=== PATIENT | male | born 1965 | race Caucasian/White ===

== ENCOUNTER 2018-10-24 14:50 | Observation (INO) ==
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
[2018-10-24] MEDS ORDERED: Aspirin 81 MG TAB.CHEW PO ONE (15:15)
[2018-10-24] MEDS ORDERED: Nitroglycerin 0.4 MG TAB.SUBL SL PRN ×2 (15:15→22:08)
[2018-10-24 15:30] LABS: Basophils # 0.1 K/mcL (0.0-0.2); Basophils % 0.9 %; Eosinophils # 0.3 K/mcL (0.0-0.6); Eosinophils % 3.8 %; Hematocrit 42.6 % (37.5-50.1); Hemoglobin 14.4 g/dL (12.9-16.9); Immature Granulocytes % 0.3 % (0-4); Lymphocytes # 2.6 K/mcL (0.6-4.6); Lymphocytes % 29.8 %; Mean Corpuscular HGB Conc 33.8 g/dL (31.6-35.5); Mean Corpuscular Hemoglobin 29.4 pg (28.0-33.3); Mean Corpuscular Volume 87.1 fL (83.0-100.0); Mean Platelet Volume 9.3 fL (9.4-12.4); Monocytes # 0.7 K/mcL (0.0-1.3); Monocytes % 7.9 %; Platelet Count 204 K/mcL (140-400); Red Blood Count 4.89 M/mcL (4.19-5.50); Red Cell Distribution Width 12.5 % (11.5-14.5); Segmented Neutrophils % 57.3 %; White Blood Count 8.8 K/mcL (4.3-11.1)
[2018-10-24 15:40] LABS: Prothrombin Time 11.1 Seconds (9.4-12.1)
[2018-10-24 15:43] LABS: BUN/Creatinine Ratio 19 (6-26); Blood Urea Nitrogen 14 mg/dL (6-20); Calcium 9.8 mg/dL (8.6-10.3); Carbon Dioxide 27 mEq/L (23-29); Chloride 102 mEq/L (98-107); Glucose 103 mg/dL (70-105); Osmolality,Calculated 287 (280-300); Potassium 4.4 mEq/L (3.5-5.1); Sodium 138 mEq/L (136-145); eGFR For African Americans > 60 (> 60); eGFR For Non-African Americans > 60 (> 60)
[2018-10-24 15:44] LABS: Troponin I 0.03 ng/mL (< 0.04)
--- NOTE | 2018-10-24 18:03 | Emergency Department Note ---
Disposition Clinical Impression: Chest pain Qualifiers: Chest pain type: unspecified Qualified Code(s): R07.9 - Chest pain, unspecified Disposition: Admitted As Inpatient Condition: Fair Reasons to Return/Additional Instructions: Referrals: NONE,PCP [Primary Care Provider] - Forms: ED Satisfaction Letter Time of Disposition: 18:44 General Adult HPI - General Chief complaint: ED Chest Pain Stated complaint: chest pain, HTN Time Seen by Provider: 10/24/18 14:59 Source: patient Mode of arrival: ambulatory Limitations: no limitations - History of Present Illness Pain Scale: 4 - Related Data Previous Rx's Medication Instructions Recorded Atorvastatin [Lipitor] 80 mg PO HS #30 tablet 08/30/16 Nitroglycerin 0.4 mg SL Q5MIN PRN #30 tab.subl 08/30/16 Allergies Allergy/AdvReac Type Severity Reaction Status Date / Time fluticasone [From Flonase] AdvReac BURNING Verified 09/10/17 10:43 Cardiovascular: Reports: chest pain. Denies: palpitations, dyspnea on exertion, edema, syncope Respiratory: Denies: cough, dyspnea, wheezes Gastrointestinal: Denies: abdominal pain, nausea, vomiting, diarrhea Past Medical History - Past Medical History Medical history: Reports: arthritis, coronary artery disease, hyperlipidemia, hypertension Surgical history: Reports: other Psychiatric history: Reports: no psych history - Social History Smoking Status: Former smoker Smokeless Tobacco Status: No Alcohol use: Reports: none Drug use: Reports: none Physical Exam - General Limitations: no limitations General appearance: alert Course - Reevaluation(s) Reevaluation #1: accepted sign out from Dr. Maximilian Amador and the plan is to followup with repeast troponin. The likelihood of him leaving AMA is high but he is willing to stay for the repeat troponin and if negstie will likely sign out AMA. If troponin is higher than I will discuss with elzbieta the need for admission again, and still endorse admission even if it is negstive as he is high risk for ACS and has a high heart score. troponin pending. Time: 18:02 Reevaluation #2: discussed with jonhy about risks of leaving again and he is more ammenable abo ut being admitted if we can give a courtesy call out to Dr. Ornelas about missing his appointment tomorrow, he has been waiting to go for it and does not want to miss it or be kicked out of the practice. I will give him a courtesy call and he will be admitted for chest pain rule out. Time: 18:43 - Consultations Consultation #1: gave Dr. kim a courtesy call and he is understanding of patinet admission need and there will not any reprecussions secondary to it Time: 18:43 Consultation #2: discussed cse with Dr. Boss and he accepts pstient to medicine service Time: 19:40 Vital Signs Temperature 98.4 F 10/24/18 14:56 Pulse Rate 83 10/24/18 14:56 Respiratory Rate 18 10/24/18 14:56 Blood Pressure 139/95 10/24/18 14:56 O2 Sat by Pulse Oximetry 97 10/24/18 14:56 Temperature 98.4 F 10/24/18 14:56 Pulse Rate 71 10/24/18 18:12 Respiratory Rate 14 10/24/18 18:12 Blood Pressure 149/100 10/24/18 18:12 O2 Sat by Pulse Oximetry 97 10/24/18 18:12 Oxygen Delivery Oxygen Delivery Room Air Medical Decision Making - Lab Data Result diagrams: 10/24/18 15:05 10/24/18 15:05 Lab Results 10/24/18 10/24/18 10/24/18 Range/Units 15:05 15:05 15:05 WBC 8.8 (4.3-11.1) K/mcL RBC 4.89 (4.19-5.50) M/mcL Hgb 14.4 (12.9-16.9) g/dL Hct 42.6 (37.5-50.1) % MCV 87.1 (83.0-100.0) fL MCH 29.4 (28.0-33.3) pg MCHC 33.8 (31.6-35.5) g/dL RDW 12.5 (11.5-14.5) % Plt Count 204 (140-400) K/mcL MPV 9.3 L (9.4-12.4) fL Immature Gran % 0.3 (0-4) % Seg Neutrophils % 57.3 % Lymphocytes % 29.8 % Monocytes % 7.9 % Eosinophils % 3.8 % Basophils % 0.9 % Neutrophils # 5.0 (1.6-8.9) K/mcL Lymphocytes # 2.6 (0.6-4.6) K/mcL Monocytes # 0.7 (0.0-1.3) K/mcL Eosinophils # 0.3 (0.0-0.6) K/mcL Basophils # 0.1 (0.0-0.2) K/mcL PT 11.1 (9.4-12.1) Seconds INR 1.0 APTT 30.0 (26.0-36.0) Seconds Sodium 138 (136-145) mEq/L Potassium 4.4 (3.5-5.1) mEq/L Chloride 102 (98-107) mEq/L Carbon Dioxide 27 (23-29) mEq/L BUN 14 (6-20) mg/dL Creatinine 0.75 (0.70-1.30) mg/dL Est GFR ( Amer) > 60 (> 60) Est GFR (Non-Af Amer) > 60 (> 60) BUN/Creatinine Ratio 19 (6-26) Glucose 103 (70-105) mg/dL Calculated Osmolality 287 (280-300) Calcium 9.8 (8.6-10.3) mg/dL Troponin I 0.03 (< 0.04) ng/mL 10/24/18 Range/Units 17:49 WBC (4.3-11.1) K/mcL RBC (4.19-5.50) M/mcL Hgb (12.9-16.9) g/dL Hct (37.5-50.1) % MCV (83.0-100.0) fL MCH (28.0-33.3) pg MCHC (31.6-35.5) g/dL RDW (11.5-14.5) % Plt Count (140-400) K/mcL MPV (9.4-12.4) fL Immature Gran % (0-4) % Seg Neutrophils % % Lymphocytes % % Monocytes % % Eosinophils % % Basophils % % Neutrophils # (1.6-8.9) K/mcL Lymphocytes # (0.6-4.6) K/mcL Monocytes # (0.0-1.3) K/mcL Eosinophils # (0.0-0.6) K/mcL Basophils # (0.0-0.2) K/mcL PT (9.4-12.1) Seconds INR APTT (26.0-36.0) Seconds Sodium (136-145) mEq/L Potassium (3.5-5.1) mEq/L Chloride (98-107) mEq/L Carbon Dioxide (23-29) mEq/L BUN (6-20) mg/dL Creatinine (0.70-1.30) mg/dL Est GFR ( Amer) (> 60) Est GFR (Non-Af Amer) (> 60) BUN/Creatinine Ratio (6-26) Glucose (70-105) mg/dL Calculated Osmolality (280-300) Calcium (8.6-10.3) mg/dL Troponin I < 0.03 (< 0.04) ng/mL Heart Score - Score History: Moderately Suspicious EKG: Non Specific repolarisation Disturbance Age: 45-65 Risk Factors: Equal/Greater than 3 risk factor or history of atherosclerotic disease Troponin: Less than normal limit HEART Score Total: 5
[2018-10-24] MEDS ORDERED: *HR* FentaNYL (PF) 100 MCG/2 ML VIAL IVP ONE (19:15)
--- NOTE | 2018-10-24 22:12 | Internal Med History&Physical ---
Date of Encounter: 10/24/18 Time of Encounter: 22:12 Internal Medicine - H&P: HPI Chief complaint: Chest pain History of present illness: Mr. Belcher is a 53 year old male with a past medical history of coronary artery disease status post stent to LAD, hypertension, hyperlipidemia who presented to the ED with complaints of chest pain. Patient reports that around 11 AM this morning he developed left-sided chest pain which occurred during sexual activity. Pain described as a heaviness, 10 out of 10 in intensity with associated nausea and left arm pain. Patient reports pain aggravated when lying down on his back and improves with sitting up. Patient does state that the pain is similar to his chest pain around the time he had a stent placed. Pain somewhat subsided but continue to persist throughout the rest of the day. He subsequently went for his rehabilitation session where his blood pressure was found to be elevated and referred to the ED for further evaluation. Shortly after arrival, patients chest pain completely resolved after receiving 2 nitrogl ycerin. Initial troponins were negative 2. EKG showed normal sinus rhythm. Patient had a stress test in 2018 prior to a back surgery which was negative for ischemia. Patient is not currently on a beta brynn due to extreme fatigue associated with it. Patient follows with a pharmacology teacher whom he recently saw last Sunday. Patient does not smoke. No alcohol or drug use. Patient received loading dose of aspirin in the ED. Past Med Surg Social Fam HX - Past Medical History Medical history: arthritis, coronary artery disease, hyperlipidemia, hypertension Psychiatric history: no psych history - Past Surgical History Surgical History: other Additional surgical history: heart stent, hemorrhoid sx, jaw wired shut - Social History Smoking Status: Former smoker Smokeless Tobacco Status: No Alcohol use: none Drug use: none - Family History Father Hx Family Cardiac Disorders: Yes Mother Hx Family Cardiac Disorders: Yes Internal Medicine - H&P: Meds Atorvastatin [Lipitor] 80 mg PO HS #30 tablet 08/30/16 [Rx] Nitroglycerin 0.4 mg SL Q5MIN PRN #30 tab.subl 08/30/16 [Rx] Aspirin Enteric Coated [Aspirin EC] 81 mg PO DAILY #30 tablet. 10/25/18 [Rx] Metoprolol [Lopressor] 12.5 mg PO BID #30 tablet 10/25/18 [Rx] Allergy/AdvReac Type Severity Reaction Status Date / Time fluticasone [From Flonase] AdvReac BURNING Verified 09/10/17 10:43 All Systems PM: A 10-system review of systems was performed and is negative for pertinent f indings except as documented above in the HPI. - Constitutional Constitutional: no chills, no fever(s), no night sweats - EENT Eyes: no change in vision, no discharge, no pain, no photophobia Ears: no ear discharge, no ear pain, no tinnitus Nose, mouth and throat: no dysphagia, no nasal discharge, no neck pain, no sore throat - Cardiovascular Cardiovascular ROS IM: no chest pain, no diaphoresis, no dyspnea, no lightheadedness, no palpitations, no syncope - Respiratory Respiratory: no cough, no dyspnea, no wheezing, no excessive phlegm production - Gastrointestinal Gastrointestinal: no abdominal pain, no diarrhea, no hematemesis, no hematochezia, no melena, no nausea, no vomiting - Musculoskeletal Musculoskeletal ROS IM: no numbness, no tingling - Integumentary Integumentary IM: no rash, no unusual bruising - Neurological Neurological ROS: no confusion, no convulsions, no focal weakness, no numbness, no tingling, no tremor(s) - Hematologic/Lymphatic Hematologic/Lymphatic: no easy bruising - Constitutional Vitals: Temp Pulse Resp BP Pulse Ox 98.4 F 71 14 149/100 97 10/24/18 14:56 10/24/18 18:12 10/24/18 18:12 10/24/18 18:12 10/24/18 18:12 Exam: General: Alert and oriented 3 Skin:Normal color, no rash, no lesions. HEENT:EOM, pupils equal, round and reactive. Cardiovascular:Normal S1 & S2, no rubs, murmurs or gallops. No JVD. Pulse regular. Lungs:Normal breath sounds, no wheezes or crackles. Abdomen:Soft, non-tender, no rigidity. Extremities:No deformity, no edema or tenderness, no joint swelling or clubbing. Neurological:Normal cognition and motor skills. Pulses:Carotid and radial pulses normal +2. Rest of the physical exam is non contributory Internal Med - H&P Results - Labs CBC & Chem 7: 10/25/18 01:34 10/25/18 01:34 Labs: Short CBC 10/24/18 Range/Units 15:05 WBC 8.8 (4.3-11.1) K/mcL Hgb 14.4 (12.9-16.9) g/dL Hct 42.6 (37.5-50.1) % Plt Count 204 (140-400) K/mcL Neutrophils # 5.0 (1.6-8.9) K/mcL BMP 10/24/18 15:05 Sodium 138 Potassium 4.4 Chloride 102 Carbon Dioxide 27 BUN 14 Creatinine 0.75 Glucose 103 Calcium 9.8 Cardiac Enzymes 10/24/18 10/24/18 Range/Units 15:05 17:49 Troponin I 0.03 < 0.03 (< 0.04) ng/mL - Impressions ITS Impressions Chest X-Ray 10/24/18 15:15 IMPRESSION: No acute cardiopulmonary disease. D/ / 10/24/2018 15:48:15 Jesse Mccloud MD / [facility] Interpreting Provider: Jesse Mccloud MD - Assessment and Plan (1) Chest pain Status: Acute Assessment and plan: 53 year-old male with a past medical history of coronary artery disease status post stent to LAD several years ago who presents with chest pain arising during sexual activity. Pain completely resolved after receiving 2 sublingual nitroglycerin. Troponin negative 2. EKG shows sinus rhythm in the absence of any ST or T-wave changes concerning for ischemia. -Telemetry -Sublingual nitroglycerin as needed -Echocardiogram -We will repeat third troponin. If negative will send for nuclear stress testing in the morning. Qualifiers: Chest pain type: unspecified Qualified Code(s): R07.9 - Chest pain, unsp ecified (2) HLD (hyperlipidemia) Status: Acute Assessment and plan: Resume home statin medication. Patient reports muscle cramps with atorvastatin in the past. Qualifiers: Hyperlipidemia type: unspecified Qualified Code(s): E78.5 - Hyperlipidemia, unspecified (3) HTN (hypertension) Status: Acute Assessment and plan: Blood pressure stable. Qualifiers: Hypertension type: essential hypertension Qualified Code(s): I10 - Essential (primary) hypertension (4) DVT prophylaxis Status: Acute Assessment and plan: Subcutaneous heparin - Time Spent With Patient Total time spent is greater than 50% in coordination of care (as documented) at patient's floor/unit and/or counseling patient:
[2018-10-25 02:49] LABS: Basophils # 0.1 K/mcL (0.0-0.2); Basophils % 0.7 %; Eosinophils # 0.3 K/mcL (0.0-0.6); Eosinophils % 4.1 %; Hematocrit 39.8 % (37.5-50.1); Hemoglobin 13.3 g/dL (12.9-16.9); Immature Granulocytes % 0.4 % (0-4); Lymphocytes # 3.4 K/mcL (0.6-4.6); Lymphocytes % 41.1 %; Mean Corpuscular HGB Conc 33.4 g/dL (31.6-35.5); Mean Corpuscular Hemoglobin 29.7 pg (28.0-33.3); Mean Corpuscular Volume 88.8 fL (83.0-100.0); Mean Platelet Volume 9.3 fL (9.4-12.4); Monocytes # 0.7 K/mcL (0.0-1.3); Monocytes % 8.3 %; Neutrophils # 3.8 K/mcL (1.6-8.9); Platelet Count 194 K/mcL (140-400); Red Blood Count 4.48 M/mcL (4.19-5.50); Red Cell Distribution Width 12.5 % (11.5-14.5); Segmented Neutrophils % 45.4 %; White Blood Count 8.3 K/mcL (4.3-11.1)
[2018-10-25 03:16] LABS: Alanine Aminotransferase 17 Units/L (7-52); Albumin 4.2 g/dL (3.5-5.7); Albumin/Globulin Ratio 1.9 (1.1-2.2); Alkaline Phosphatase 65 Units/L (34-104); Aspartate Amino Transferase 12 Units/L (13-39); BUN/Creatinine Ratio 17 (6-26); Bilirubin,Total 0.5 mg/dL (0.3-1.0); Blood Urea Nitrogen 15 mg/dL (6-20); Calcium 9.4 mg/dL (8.6-10.3); Carbon Dioxide 28 mEq/L (23-29); Chloride 103 mEq/L (98-107); Globulin 2.2 g/dL (2.4-3.5); Glucose 153 mg/dL (70-105); Magnesium 2.2 mg/dL (1.6-2.6); Osmolality,Calculated 292 (280-300); Sodium 139 mEq/L (136-145); Total Protein 6.4 g/dL (6.4-8.9); eGFR For African Americans > 60 (> 60); eGFR For Non-African Americans > 60 (> 60)
[2018-10-25 03:19] LABS: Thyroid Stimulating Hormone 1.563 mcIU/mL (0.340-5.600)
[2018-10-25 05:28] VITALS: BP 106/68
[2018-10-25] MEDS ORDERED: Regadenoson 0.4 MG/5 ML SYRINGE IVP ONE (07:33)
[2018-10-25 08:20] LABS: Estimated Average Glucose 120 mg/dl
--- NOTE | 2018-10-25 10:06 | Discharge Summary ---
- NOTES TO OUTPATIENT PROVIDER Notes to Outpatient Provider: f/u with PCP in one week. f/u with Cardiology in 3 days. If you get CP again please come back to ER. Please start taking Metoprolol 12.5mg and Aspirin 81mg Date of Encounter: 10/25/18 Time of Encounter: 10:04 - Discharge Diagnosis (1) Chest pain Priority: Primary Status: Acute Qualifiers: Chest pain type: unspecified Qualified Code(s): R07.9 - Chest pain, unspecified (2) HTN (hypertension) Priority: Secondary Status: Acute Qualifiers: Hypertension type: essential hypertension Qualified Code(s): I10 - Essential (primary) hypertension (3) HLD (hyperlipidemia) Priority: Secondary Status: Acute Qualifiers: Hyperlipidemia type: unspecified Qualified Code(s): E78.5 - Hyperlipidemia, unspecified (4) DVT prophylaxis Priority: Secondary Status: Acute Hospital course: Mr. Belcher is a 53 year old male with a past medical history of coronary artery disease status post stent to LAD ( single vessel disease in 2017 ), hypertension and hyperlipidemia pt presented to the ED with complaints of chest pain. Patient reports that around 11 AM this morning he developed left-sided chest pain which occurred during sexual activity. 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 He denied any more active chest pain now. His serial troponin came back as negative. Since patient is high risk for ACS , he did go for nuclear stress test. Pt stated he has an appt at pain management clinic this morning at 10:30 for his back which he has been waited for months. So pt wanted to leave A if I won't discharge him now. I explained to him all the risk factors and he is high risk for ACS, I am concerning for stress test results. Pt stated if his stress test comes back abnormal , he will come back to the hospital to continue further work up. I will call him later today once we get final results on stress test. - Time Spent with Patient Total time spent providing and/or coordinating discharge services: - Discharge Medications Prescriptions: New Aspirin Enteric Coated [Aspirin EC] 81 mg PO DAILY #30 tablet. Metoprolol [Lopressor] 12.5 mg PO BID #30 tablet Continued Atorvastatin [Lipitor] 80 mg PO HS #30 tablet Nitroglycerin 0.4 mg SL Q5MIN PRN #30 tab.subl PRN Reason: Chest Pain Home Medications: Atorvastatin [Lipitor] 80 mg PO HS #30 tablet 08/30/16 [Rx] Nitroglycerin 0.4 mg SL Q5MIN PRN #30 tab.subl 08/30/16 [Rx] Aspirin Enteric Coated [Aspirin EC] 81 mg PO DAILY #30 tablet. 10/25/18 [Rx] Metoprolol [Lopressor] 12.5 mg PO BID #30 tablet 10/25/18 [Rx] Allergies/Adverse Reactions: Allergy/AdvReac Type Severity Reaction Status Date / Time fluticasone [From Flonase] AdvReac BURNING Verified 09/10/17 10:43 Date of admission: 10/24/18 20:28 Primary care physician: PCP NONE - Constitutional Vitals: Temp Pulse Resp BP Pulse Ox 98 F 71 14 106/68 97 10/25/18 05:26 10/25/18 05:26 10/25/18 05:26 10/25/18 05:26 10/25/18 05:26 Exam: Gen: Alert, awake, Oriented to time,place and person Chest: Diminished breath sounds B/L, No wheezing, No crackles, No rales Heart: S1S2+ RRR No murmurs Abd: Soft, NT, BS +, No organomegaly Ext: No edema, pulses are palpable, No calf tenderness Neuro : No acute focal neuro deficits noticed Skin: No rash. - Patient Status Disposition: Home, Self-Care Condition: Good Overall status at discharge: patient is back to baseline - Discharge Instructions Instructions: Chest Pain (DC) Follow Up With: Mary Oliva MD [Non-Partnered Physician] - (We requested a follow up appointment with Dr Oliva. The office will call you at home with an appt date and time. ) NONE,PCP [Primary Care Provider] - (Please follow up with your [facility] within 1 week. ) - Diet and Activity Activity: increase activity as tolerated Diet: low salt diet
--- NOTE | 2018-10-28 12:43 | Electrocardiograph Report ---
[address] [address] Test Date: 2018-10-24 Pat Name: Peña Belcher Department: EXAM1 Room: 3B16 Gender: M Nursing Specialist: : [id number] Requested By: Louis Mendoza Order Number: [id number] Reading MD: Bryant Law Measurements Intervals [place] Rate: 85 P: 47 IA: 168 QRS: 69 QRSD: 102 T: 31 QT: 352 QTc: 419 Interpretive Statements Sinus rhythm Electronically Signed On 10-28-2018 12:41:52 EDT by Bryant Law
== END 2018-10-25 10:35 | disposition home or self-care (01) ==
LOC: 3BNU 14:50 → EMEROOARM 14:50 → SUATTDRO 20:28 → 3BNU 22:35
PROVIDERS: ADMIT Internal Medicine; ATTEND Family Medicine

== ENCOUNTER 2022-01-12 11:47 | Observation (INO) ==
[2022-01-12 12:47] LABS: Basophils # 0.1 K/mcL (0.0-0.2); Basophils % 0.9 %; Eosinophils # 0.4 K/mcL (0.0-0.6); Hematocrit 41.7 % (37.5-50.1); Hemoglobin 14.1 g/dL (12.9-16.9); Immature Granulocytes % 0.3 % (0-4); Lymphocytes # 2.4 K/mcL (0.6-4.6); Lymphocytes % 38.1 %; Mean Corpuscular HGB Conc 33.8 g/dL (31.6-35.5); Mean Corpuscular Hemoglobin 29.6 pg (28.0-33.3); Mean Corpuscular Volume 87.6 fL (83.0-100.0); Mean Platelet Volume 9.7 fL (9.4-12.4); Monocytes # 0.6 K/mcL (0.0-1.3); Monocytes % 9.4 %; Neutrophils # 2.9 K/mcL (1.6-8.9); Platelet Count 181 K/mcL (140-400); Red Blood Count 4.76 M/mcL (4.19-5.50); Red Cell Distribution Width 12.3 % (11.5-14.5); Segmented Neutrophils % 45.3 %; White Blood Count 6.4 K/mcL (4.3-11.1)
[2022-01-12 13:03] LABS: BUN/Creatinine Ratio 20 (6-26); Blood Urea Nitrogen 17 mg/dL (6-20); Calcium 9.3 mg/dL (8.6-10.3); Carbon Dioxide 25 mEq/L (23-29); Chloride 105 mEq/L (98-107); Glucose 108 mg/dL (70-105); Osmolality,Calculated 284 (280-300); Potassium 3.8 mEq/L (3.5-5.1); Sodium 136 mEq/L (136-145); Troponin I < 0.03 ng/mL (< 0.04)
[2022-01-12] MEDS ORDERED: Morphine Sulfate 2 MG/ML SYRINGE IVP ONE (13:23)
[2022-01-12] MEDS ORDERED: Iopamidol - 370 500 ML MLS IVP ONE (14:22)
[2022-01-12] MEDS ORDERED: Nitroglycerin 0.4 MG TAB.SUBL SL PRN (15:53)
[2022-01-12] MEDS ORDERED: Morphine Sulfate 2 MG/ML SYRINGE IVP PRN (15:53)
[2022-01-12 20:48] LABS: Adenovirus Not Detected (Not Detect); Bordetella Pertussis Not Detected (Not Detect); Chlamydophila pneumoniae Not Detected (Not Detect); Coronavirus 229E Not Detected (Not Detect); Coronavirus HKU1 Not Detected (Not Detect); Coronavirus NL63 Not Detected (Not Detect); Coronavirus OC43 Not Detected (Not Detect); Human Metapneumovirus Not Detected (Not Detect); Human Rhinovirus/Enterovirus Not Detected (Not Detect); Influenza A Subtype 2009 H1 Not Detected (Not Detect); Influenza B Not Detected (Not Detect); Mycoplasma pneumoniae Not Detected (Not Detect); Parainfluenza Virus 1 Not Detected (Not Detect); Parainfluenza Virus 2 Not Detected (Not Detect); Parainfluenza Virus 3 Not Detected (Not Detect); Parainfluenza Virus 4 Not Detected (Not Detect); Respiratory Syncytial Virus Not Detected (Not Detect); SARS-CoV-2 Not Detected (Not Detect)
[2022-01-13 00:58] LABS: Basophils # 0.1 K/mcL (0.0-0.2); Eosinophils # 0.5 K/mcL (0.0-0.6); Eosinophils % 6.7 %; Hemoglobin 12.7 g/dL (12.9-16.9); Immature Granulocytes % 0.1 % (0-4); Lymphocytes # 2.7 K/mcL (0.6-4.6); Lymphocytes % 40.4 %; Mean Corpuscular HGB Conc 33.4 g/dL (31.6-35.5); Mean Corpuscular Hemoglobin 29.7 pg (28.0-33.3); Mean Corpuscular Volume 88.8 fL (83.0-100.0); Monocytes # 0.7 K/mcL (0.0-1.3); Monocytes % 9.6 %; Neutrophils # 2.8 K/mcL (1.6-8.9); Platelet Count 172 K/mcL (140-400); Red Blood Count 4.28 M/mcL (4.19-5.50); Red Cell Distribution Width 12.4 % (11.5-14.5); Segmented Neutrophils % 42.2 %; White Blood Count 6.7 K/mcL (4.3-11.1)
[2022-01-13 01:13] LABS: Alanine Aminotransferase 12 Units/L (7-52); Albumin 3.9 g/dL (3.5-5.7); Albumin/Globulin Ratio 1.6 (1.1-2.2); Alkaline Phosphatase 57 Units/L (34-104); Aspartate Amino Transferase 11 Units/L (13-39); BUN/Creatinine Ratio 22 (6-26); Bilirubin,Total 0.4 mg/dL (0.3-1.0); Blood Urea Nitrogen 18 mg/dL (6-20); Calcium 9.3 mg/dL (8.6-10.3); Carbon Dioxide 25 mEq/L (23-29); Chloride 106 mEq/L (98-107); Globulin 2.4 g/dL (2.4-3.5); Glucose 110 mg/dL (70-105); Magnesium 1.9 mg/dL (1.6-2.6); Osmolality,Calculated 285 (280-300); Potassium 3.8 mEq/L (3.5-5.1); Sodium 136 mEq/L (136-145); Total Protein 6.3 g/dL (6.4-8.9)
[2022-01-13] MEDS ORDERED: Regadenoson 0.4 MG/5 ML SYRINGE IVP ONE (06:09)
[2022-01-13] MEDS ORDERED: Aspirin 81 MG TAB.CHEW PO SCH (09:00)
[2022-01-13 10:40] VITALS: BP 127/86; PULSE 64; TEMP 97.9; O2SAT 95
== END 2022-01-13 15:33 | disposition home or self-care (01) ==
LOC: EMEROOARM 11:47 → 3BNU 11:47 → SUATTDRO 16:26 → 3BNU 17:25
PROVIDERS: ADMIT Internal Medicine; ATTEND Nurse Practitioner